=== PATIENT | female | born 1995 | race Caucasian/White ===

== ENCOUNTER 2018-07-09 20:17 | Emergency (ER) | payer OTHER ==
[2018-07-09] MEDS ORDERED: JUBL1SOL TOP (20:27)
[2018-07-09 22:02] VITALS: BP 118/82
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
== END 2018-07-09 23:07 | disposition home or self-care (01) ==
LOC: M ED 20:17
DX: S00.93XA Contusion of unspecified part of head, initial encounter (principal); S16.1XXA Strain of muscle, fascia and tendon at neck level, initial encounter; V89.9XXA Person injured in unspecified vehicle accident, initial encounter